=== PATIENT | female | born 1990 | race African-American/Black ===

== ENCOUNTER 2021-05-17 08:09 | Emergency (ER) | payer OTHER ==
[~2021-05-17] VITALS: Ht 160 cm; Wt 74.8 kg
[2021-05-17 08:14] VITALS: BP 120/69
[2021-05-17] MEDS ORDERED: MEDROL DOSPAK21 TA1 PO (08:55)
[2021-05-17] MEDS ORDERED: EPIPEN0.3 MG/0.1 IM (08:55)
== END 2021-05-17 08:57 | disposition home or self-care (01) ==
LOC: ER 08:09
DX: L50.0 Allergic urticaria (principal)